=== PATIENT | female | born 1995 | race Hispanic/Latino ===

== ENCOUNTER → 2017-09-27 15:42 | Outpatient (CLI) | payer OTHER, SELFPAY ==
[2017-09-27 17:32] LABS: Hematocrit 31.5 % (37-47); Hemoglobin 10.5 g/dl (12.0-15.0); Mean Corp Hgb Conc 33.3 g/gl (32-36); Mean Corpuscular Hgb 31.2 pg (27.0-32.0); Mean Corpuscular Volume 93.5 fL (81-99); Mean Platelet Vol. 10.2 fl (6.2-12.0); Platelet Count 265 K/mm3 (150-450); RBC Distribution Width CV 12.1 % (11.6-14.6); RBC Distribution Width SD 41.2 fl (35.1-43.9); Red Blood Count 3.37 M/mm3 (4.2-5.4); White Blood Count 10.5 K/mm3 (4.4-11.0)
[2017-09-27 17:36] LABS: Scan Indicated on CBC? Y/N NO
[2017-09-27 17:38] LABS: Glucose Challenge Gest 1H 50g 96 mg/dL (70-140)
[2017-09-28 09:24] LABS: Ferritin 7 ng/mL (8-252)
== END ==
PROVIDERS: Visit Provider Obstetrics & Gynecology
DX: Z34.83 Encounter for supervision of other normal pregnancy, third trimester (principal)
CPT/HCPCS: 36415; 82728; 82950; 85027

== ENCOUNTER → 2017-11-11 15:53 | Outpatient (CLI) | payer OTHER, SELFPAY ==
[2017-11-11 17:53] LABS: Group B Strep DNA By PCR Negative (Negative); Internal Control PASS; Probe Check PASS; Specimen Processing Control PASS
== END ==
PROVIDERS: Visit Provider Obstetrics & Gynecology
DX: Z36.85 Encounter for antenatal screening for Streptococcus B (principal)
CPT/HCPCS: 87081; 87653

== ENCOUNTER 2017-12-12 04:02 | Inpatient (IN) | payer OTHER, SELFPAY ==
--- NOTE | 2017-12-12 04:02 | DT_ITS ---
This patient was seen during an EMR downtime December 05, 2017 - December 12, 2017. This patient may have a combination of paper and electronic documentation or all paper documentation. All documentation is viewable within the e-chart portion of [facility] for each patient visit.
[2017-12-12] MEDS: Lactated Ringers 1,000 ML 50 ML IV ×3 (04:45→13:59)
[2017-12-12 05:26] LABS: Hematocrit 35.4 % (37-47); Hemoglobin 12.2 g/dl (12.0-15.0); Mean Corp Hgb Conc 34.5 g/gl (32-36); Mean Corpuscular Hgb 31.4 pg (27.0-32.0); Mean Corpuscular Volume 91.2 fL (81-99); Mean Platelet Vol. 11.5 fl (6.2-12.0); Platelet Count 191 K/mm3 (150-450); RBC Distribution Width SD 45.5 fl (35.1-43.9); Red Blood Count 3.88 M/mm3 (4.2-5.4); White Blood Count 14.8 K/mm3 (4.4-11.0)
[2017-12-12 05:27] LABS: Scan Indicated on CBC? Y/N NO
[2017-12-12] MEDS: Ondansetron 4 MG/2 ML Vial IV ×2 (08:30→15:54)
[2017-12-12] MEDS: fentaNYL-bupivacaine (epidural) 100 ML BAG EPIDURAL ×2 (09:01→13:06)
[2017-12-12 10:08] VITALS: BMI 25.2
[2017-12-12] MEDS: Oxytocin 30 units/NS 500 ml 30 UNITS/500 ML IV.SOLN 334 UNITS IV (18:16)
[2017-12-12] MEDS: Oxytocin 30 units/NS 500 ml 30 UNITS/500 ML IV.SOLN 167 UNITS IV (18:46)
--- NOTE | 2017-12-12 18:53 | OP.PCM_ITS ---
- Problem List (1) 40 weeks gestation of Status: Acute Vaginal Delivery Maternal Presentation: Active Labor Method of Induction: Amniotomy, - - for augmentation Amniotic Membrane Rupture Type: Artificial Rupture of Membrane time: 12/12/17 0806h Amniotic Fluid Description: Clear Final DILEEP: 12/07/17 Gestational age: 40 Weeks and 5 Days [place] doctor who attended delivery (if requested by OB): Tessy Ly Date of Procedure: 12/12/17 Pre-Operative Diagnosis: 40 5/7wga, labor Post-Operative Diagnosis: 40 5/7wga, labor Surgery/ Procedure Performed: Spontaneous Vaginal Delivery Anesthesiologist: Otto Calderon Type of Anesthesia: Epidural Description of Procedure: Patient was FD/+4 station on my arrival. She pushed over 3 contractions to deliver a vigorous male . The was placed on the maternal abdomen and further attended by nursery personnel and the Pediatric Hospitalist. The cord was doubly clamped and cut at 3 minutes of life approximately. Cord blood specimen was obtained. The placenta delivered spontaneously and appeared intact on inspection. IV pitocin was started. An intrauterine exam was performed with retrieval of membranes and the fundus was firm. A second degree vaginal laceration was repaired using 3-0 Vicryl Rapide. There was good hemostasis. Sponge and needle counts were correct. Presentation: Vertex Placental Delivery Description: Spontaneous Placenta Disposition: [facility] Cord Vessel Description: 3 Vessels Nuchal Cord Compression: Without compression Cord Entanglement: None Drain: Case to straight drain Estimated Blood Loss: 350 ml Infant A gender: Male (1 minute): 8 (5 minute): 9 Episiotomy Description: None Laceration: None Medications given after delivery: IV Pitocin Complications: None
[2017-12-13 00:15] VITALS: BP 103/58; PULSE 104; RESP 16; TEMP 37.1
[2017-12-13 03:15] VITALS: BP 100/57; PULSE 89; RESP 16; TEMP 36.4
[2017-12-13 07:35] VITALS: BP 102/67; PULSE 91; RESP 16; TEMP 36.7; O2SAT 96
--- NOTE | 2017-12-13 08:09 | PCM.PN.OB ---
Patient Problems: Active and Suspected Problems 40 weeks gestation of (Acute) Subjective: No issues overnight. Colton has some discomfort urinating, but otherwise doing well. She is nursing. Objective: AVSS - Physical Exam General: Alert, Oriented x3, Cooperative, No apparent distress HEENT: Atraumatic Lungs: Normal air movement Cardiovascular: Regular rate, Regular Rhythm, Normal S1, Normal S2 Abdomen: Soft, Non Tender, Non-Distended, - - Fundus firm and nontender at umbilicus, lochia moderate, moderate b/l labial edema Extremities: No edema, No Calf Tenderness Neurological: Neuro grossly intact Psych/Mental Status: Normal Affect, Appropriate, Alert and oriented to time, place, person, mood and affect Vital Signs Temp Pulse Resp BP Pulse Ox 98.1 F 91 16 102/67 96 12/13/17 07:35 12/13/17 07:35 12/13/17 07:35 12/13/17 07:35 12/13/17 07:35 Oxygen Delivery Method Room Air Weight: 57.5 kg Body Mass Index (BMI) 25.2 Intake and Output for Last 24 Hours 12/11/17 12/12/17 12/13/17 23:59 23:59 23:59 Intake Total 3828 / 3828 Output Total 2200 / 2200 Balance 1628 / 1628 Assessment/Plan All Active Problems 40 weeks gestation of (Acute) 22 yo PPD#1 s/p doing well. -Rh positive - -Encouraged ambulating and adequate hydration. Discussed perineal care and anticipated hospitalization. -Routine care
[2017-12-13] MEDS: Ibuprofen 600 MG Tablet PO (09:53)
[2017-12-13 12:19] VITALS: BP 96/58; PULSE 92; RESP 16; TEMP 36.3; O2SAT 97
[2017-12-13] MEDS: Prenatal Vits Tablet 1 TABLET PO (14:08)
[2017-12-13 16:00] VITALS: BP 103/56; PULSE 84; RESP 18; TEMP 36.5; O2SAT 94
[2017-12-13 20:00] VITALS: BP 104/61; PULSE 97; RESP 18; TEMP 36.9
[2017-12-14 01:27] VITALS: BP 104/65; PULSE 97; RESP 18; TEMP 37.1
--- NOTE | 2017-12-14 07:23 | PCM.PN.OB ---
Patient Problems: Active and Suspected Problems 40 weeks gestation of (Acute) Subjective: Has mild cramping. She is out of bed and her swelling has improved. No complaints. Objective: AVSS - Physical Exam General: Alert, Oriented x3, Cooperative, No apparent distress HEENT: Atraumatic Lungs: Clear to auscultation, Normal air movement Cardiovascular: Regular rate, Regular Rhythm Abdomen: Soft, Non Tender, Non-Distended, - - Fundus firm and nontender, labial edema resolved. Extremities: No edema, No Calf Tenderness Neurological: Neuro grossly intact Psych/Mental Status: Normal Affect, Appropriate, Alert and oriented to time, place, person, mood and affect Vital Signs Temp Pulse Resp BP Pulse Ox 98.8 F 97 18 104/65 94 12/14/17 01:27 12/14/17 01:27 12/14/17 01:27 12/14/17 01:27 12/13/17 16:00 Oxygen Delivery Method Room Air Weight: 57.5 kg Body Mass Index (BMI) 25.2 Intake and Output for Last 24 Hours 12/12/17 12/13/17 12/14/17 23:59 23:59 23:59 Intake Total 3828 / 3828 Output Total 2200 / 2200 Balance 1628 / 1628 Assessment/Plan All Active Problems 40 weeks gestation of (Acute) 22 yo PPD#2 s/p doing well. -Rh positive - -Routine care -d/c home today
--- NOTE | 2017-12-14 07:29 | PCM.DCVAG ---
Discharge Diet: No Restrictions Discharge Activity: Return to Normal Activity, May Shower, May Take a Tub Bath May resume sexual activity in: 6 weeks Lifting Restrictions: 10-20 lb Call your doctor if you observe: Fever of 101 or Higher, Inability to urinate, Inability to have a bowel movement, Using more than one pad per hour, Shortness of breath, Chest pain, Calf discomfort, Uncontrolled pain Suture Line Care: Avoid Pulling/Pushing Additional Instructions: If you experience any of the following, contact your healthcare provider. Bleeding that soaks a pad every hour for 2 hours Fever 100.4 or higher Unrelieved incision or abdominal pain Swelling, redness, discharge or bleeding from your incision or episiotomy site Your incision begins to separate Problems urinating (including inability to urinate or burning while urinating). Visual changes Severe headache Flu-like symptoms Pain or redness in one of both of your breasts Pain, warmth, tenderness or swelling in your legs, especially the calf area Frequent nausea and vomiting Symptoms of depression or anxiety If you experience any of the following, call 911 or go to the nearest Emergency Room. Chest pain Problems breathing Seizure activity Partial or complete paralysis of a body part, slurred speech, weakness or drooping of the face, or a sudden inability to walk or hold your balance Allergies/Adverse Reactions: Allergies No Known Allergies Allergy (Verified 12/12/17 05:07) Medications to take at Discharge Vits [Prenatabs FA ] 1 tablet PO DAILY 12/12/17 Docusate Sodium [Colace] 100 mg PO BID PRN PRN #60 cap 12/14/17 Ibuprofen [Ibu] 600 mg PO TID PRN #30 tab 12/14/17 The following prescriptions were given: Docusate Sodium [Colace] 100 mg PO BID PRN PRN #60 cap PRN Reason: Constipation Ibuprofen [Ibu] 600 mg PO TID PRN #30 tab PRN Reason: Pain Please Follow Up With: Lizzy Jacob MD When: Call to make an appointment with your doctor in 6 weeks. Primary Care Physician: Care Physician,No Primary [Primary Care Provider] -
--- NOTE | 2017-12-14 07:33 | DCINST_ITS ---
Discharge Diet: No Restrictions Discharge Activity: Return to Normal Activity, May Shower, May Take a Tub Bath May resume sexual activity in: 6 weeks Lifting Restrictions: 10-20 lb Call your doctor if you observe: Fever of 101 or Higher, Inability to urinate, Inability to have a bowel movement, Using more than one pad per hour, Shortness of breath, Chest pain, Calf discomfort, Uncontrolled pain Suture Line Care: Avoid Pulling/Pushing Additional Instructions: If you experience any of the following, contact your healthcare provider. * Bleeding that soaks a pad every hour for 2 hours * Fever 100.4 or higher * Unrelieved incision or abdominal pain * Swelling, redness, discharge or bleeding from your incision or episiotomy site * Your incision begins to separate * Problems urinating (including inability to urinate or burning while urinating) . * Visual changes * Severe headache * Flu-like symptoms * Pain or redness in one of both of your breasts * Pain, warmth, tenderness or swelling in your legs, especially the calf area * Frequent nausea and vomiting * Symptoms of depression or anxiety If you experience any of the following, call 911 or go to the nearest Emergency Room. * Chest pain * Problems breathing * Seizure activity * Partial or complete paralysis of a body part, slurred speech, weakness or drooping of the face, or a sudden inability to walk or hold your balance Allergies/Adverse Reactions: Allergies No Known Allergies Allergy (Verified 12/12/17 05:07) Medications to take at Discharge Vits [Prenatabs FA ] 1 tablet PO DAILY 12/12/17 Docusate Sodium [Colace] 100 mg PO BID PRN PRN #60 cap 12/14/17 Ibuprofen [Ibu] 600 mg PO TID PRN #30 tab 12/14/17 The following prescriptions were given: Docusate Sodium [Colace] 100 mg PO BID PRN PRN #60 cap PRN Reason: Constipation Ibuprofen [Ibu] 600 mg PO TID PRN #30 tab PRN Reason: Pain Please Follow Up With: Lizzy Jacob MD When: Call to make an appointment with your doctor in 6 weeks. Primary Care Physician: Care Physician,No Primary [Primary Care Provider] -
[2017-12-14 08:40] VITALS: BP 99/61; PULSE 73; RESP 20; TEMP 36.9; O2SAT 96
[2017-12-14] MEDS: Prenatal Vits Tablet 1 TABLET PO (12:08)
== END 2017-12-14 12:45 | disposition home or self-care (01) | DRG 774 ==
PROVIDERS: Admitting Provider Obstetrics & Gynecology; Visit Provider Obstetrics & Gynecology
DX: O70.1 Second degree perineal laceration during delivery (principal); O98.42 Viral hepatitis complicating childbirth; B19.20 Unspecified viral hepatitis C without hepatic coma; Z37.0 Single live birth; Z3A.40 40 weeks gestation of pregnancy
CPT/HCPCS: 59025; 59050; 85027; 86850; 86900; 99218; J7120; G0378; J2405

== ENCOUNTER 2017-12-20 19:25 | Outpatient (CLI) | payer OTHER, SELFPAY | END 2017-12-20 20:30 | disposition home or self-care (01) | LOC: WPOUT 19:29 → WP 19:30 | PROVIDERS: Visit Provider Obstetrics & Gynecology | DX: Z39.1 Encounter for care and examination of lactating mother (principal) | CPT/HCPCS: 96152 ==

== ENCOUNTER 2017-12-24 11:30 | Outpatient (CLI) | payer OTHER, SELFPAY | END 2017-12-24 12:40 | disposition home or self-care (01) | LOC: WPOUT 11:34 → WP 11:35 | PROVIDERS: Visit Provider Obstetrics & Gynecology | DX: Z39.1 Encounter for care and examination of lactating mother (principal) | CPT/HCPCS: 96152 ==

== ENCOUNTER → 2018-04-10 16:10 | Outpatient (CLI) | payer SELFPAY ==
[2018-04-10 18:09] LABS: Progesterone Level 0.61 ng/mL (See Comment)
[2018-04-10 18:12] LABS: hCG Titer Quant., Serum < 1 mIU/mL (<9 non-preg)
== END ==
PROVIDERS: Visit Provider Obstetrics & Gynecology
DX: Z30.014 Encounter for initial prescription of intrauterine contraceptive device (principal)
CPT/HCPCS: 36415; 84144; 84702